=== PATIENT | female | born 1955 | race Caucasian/White ===

== ENCOUNTER 2018-08-24 08:33 | Outpatient (CLI) | payer BC | END 2018-08-24 19:13 | disposition home or self-care (01) | LOC: SMA 08:33 | DX: Z12.31 Encounter for screening mammogram for malignant neoplasm of breast (principal) | CPT/HCPCS: 77067 ==

== ENCOUNTER 2019-11-15 08:23 | Outpatient (CLI) | payer BC | END 2019-11-15 18:48 | disposition home or self-care (01) | LOC: SMA 08:23 | PROVIDERS: ATTEND Family Medicine | DX: Z12.31 Encounter for screening mammogram for malignant neoplasm of breast (principal) | CPT/HCPCS: 77067 ==